=== PATIENT | female | born 1950 | race Two or more races ===

== ENCOUNTER 2020-08-17 08:39 | Outpatient (CLI) | payer OTHER ==
[2020-08-17] MEDS ORDERED: SYNTHROID137 MCG PO (12:15)
[2020-08-17] MEDS ORDERED: NASAL MIST126 ML (12:16)
== END 2020-08-17 08:48 | disposition home or self-care (01) ==
LOC: LAB 08:39
PROVIDERS: ATTEND Orthopaedic Surgery
DX: I49.8 Other specified cardiac arrhythmias (principal); I10 Essential (primary) hypertension; D64.89 Other specified anemias; E88.89 Other specified metabolic disorders; D68.8 Other specified coagulation defects; N39.0 Urinary tract infection, site not specified; Z22.322 Carrier or suspected carrier of Methicillin resistant Staphylococcus aureus; B96.29 Other Escherichia coli [E. coli] as the cause of diseases classified elsewhere

== ENCOUNTER 2020-09-03 05:56 | Day surgery (SDC) | payer OTHER ==
[~2020-09-03 05:56] MED LIST: NASAL MIST126 ML; SYNTHROID137 MCG PO
== END 2020-09-03 14:35 | disposition home or self-care (01) ==
LOC: CIR.AMB 05:56
PROVIDERS: ATTEND Orthopaedic Surgery
DX: M75.111 Incomplete rotator cuff tear or rupture of right shoulder, not specified as traumatic (principal); M75.21 Bicipital tendinitis, right shoulder; M75.41 Impingement syndrome of right shoulder; Z20.828 Contact with and (suspected) exposure to other viral communicable diseases